=== PATIENT | female | born 1985 | race Caucasian/White ===

== ENCOUNTER 2016-09-11 08:58 | Day surgery (SDC) | payer BC ==
[~2016-09-11] VITALS: Ht 165.1 cm; Wt 110.0 kg
[~2016-09-11 08:58] MED LIST: ATROPINE SULFATE 0.1 MG/ML 5ML SYR IV PRN; DOXYCYCLINE HYCLATE 100 MG CAP PO SCH; EFF75 PO; EpHEDrine SULFATE INJ 50 MG/ML AMP IV PRN; FENTANYL CITRATE INJ 50 MCG/1 ML 2 ML VIAL IV PRN; HYDROmorphone INJ 1 MG/ML SYR IV PRN; IBUP-1050 PO; LACTATED RINGER'S 1000ML 1,000 ML IV SCH; ONDANSETRON INJ 2 MG/ML 2 ML VIAL IV PRN; PRENTAB26 PO
[2016-09-11] MEDS ORDERED: GLAT1INJ PO (09:17)
[2016-09-11 09:22] VITALS: BP 120/66; PULSE 86; TEMP 36.9; O2SAT 97; Ht 165.1 cm; Wt 110.0 kg
[2016-09-11] MEDS ORDERED: SCOPOLAMINE 1.5 MG TDSY TD ONE (09:30)
[2016-09-11] MEDS ORDERED: MULT-506 PO (09:40)
[2016-09-11] MEDS ORDERED: VENL1CAP92 PO (09:40)
[2016-09-11] MEDS ORDERED: ONDANSETRON INJ 2 MG/ML 2 ML VIAL ONE (09:42)
[2016-09-11] MEDS ORDERED: PROPOFOL IV EMULSION 10 MG/ML 20 ML VIAL IV ONE (09:42)
[2016-09-11] MEDS ORDERED: MIDAZOLAM HCL 1 MG/ML 2ML VIAL ONE (09:42)
[2016-09-11] MEDS ORDERED: LIDOCAINE HCL 2% 2 ML VIAL (20MG/ML) ONE (09:42)
[2016-09-11] MEDS ORDERED: DEXAMETHASONE SOD INJ 4 MG/ML VIAL ONE ×2 (09:42→10:37)
[2016-09-11] MEDS ORDERED: FENTANYL CITRATE INJ 50 MCG/1 ML 2 ML VIAL ONE (09:42)
[2016-09-11 09:50] LABS: BASO % 0.2 %; BASO ABS # 0.02 K/uL (0-0.2); EOS % 0.6 %; HEMATOCRIT 40.3 % (37-47); IG% 0.5 %; LYMPH ABS # 2.93 K/uL (1.2-3.4); MEAN CELL VOLUME 88.8 fL (80-100); MEAN CORPUSCULAR HEMOGLOBIN 30.6 pg (25-34); MEAN PLATELET VOLUME 9.9 fL (7.4-10.4); MONO % 5.6 %; NEUT % 58.1 %; PLATELET COUNT 224 K/uL (130-400); RED BLOOD COUNT 4.54 M/uL (4.2-5.4); WHITE BLOOD COUNT 8.38 K/uL (4.8-10.8)
[2016-09-11] MEDS ORDERED: SODIUM CHLORIDE 0.9% 1000ML 1,000 ML IV SCH (09:56)
--- NOTE | 2016-09-11 09:56 | History & Physical Bridge Note ---
H&P Re-Evaluation Bridge Note: I have examined the patient, reviewed the History & Physical and in the interval since the performance of the History & Physical I have noted the following changes of clinical significance: No changes noted
[2016-09-11 09:57] LABS: CALCIUM 8.6 mg/dl (8.5-10.1); CREATININE 0.61 mg/dl (0.60-1.20); POTASSIUM 3.7 mmol/L (3.5-5.1)
--- NOTE | 2016-09-11 09:58 | Discharge Instructions ---
Discharge Instructions Date of Service Sep 11, 2016. Visit Reason for Visit: Missed Discharge Discharge Diagnosis / Problem: Miscarriage, D&E Discharge Goals Goal(s): Specific goals Activity Recommendations Activity Limitations: per Instructions/Follow-up section Anesthesia . Post Anesthesia Instructions: If you have had General Anesthesia or IV Sedation: * Do not drive today. * Resume driving when surgeon permits. * Do not make important decisions or sign legal documents today. * Call surgeon for: 1. Temperature elevations greater than 101 degrees F. 2. Uncontrollable pain. 3. Excessive bleeding. 4. Persistent nausea and vomiting. 5. Medication intolerance (nausea, vomiting or rash). * For nausea and vomiting use only clear liquids such as: tea, soda, bouillon until nausea subsides, then gradually increase diet as tolerated. * If you have any concerns or questions, call your surgeon's office. If physician is unavailable and it is an emergency, call 911 or go to the nearest emergency room. . Instructions / Follow-Up Instructions / Follow-Up ACTIVITY RECOMMENDATIONS: * Avoid tampons, douching, hot tubs, pools, and intercourse until bleeding has stopped. * May shower as usual. * No strenuous activity for 24-48 hours. After 24-48 hours, you may do anything you feel like doing (driving and sports are okay). SPECIAL CARE INSTRUCTIONS: Special Diet: * Mild nausea may occur in the immediate post-operative period. * Take clear liquids such as tea, cola or bouillon until all nausea has subsided; you may then resume your normal diet. Special Care: * Light bleeding and vaginal spotting can last from a few days to 3-4 weeks. Call your doctor if bleeding becomes heavier than the heaviest part of your period. * Check your temperature twice a day for one week. If it goes above 100.4 degrees Fahrenheit (38.0 Celsius), notify your doctor. * Call your doctor's office for an appointment for 6 weeks after your surgery. FOLLOW-UP VISIT: Call your doctor's office for an appointment for 6 weeks after your surgery. Diet Recommendations Recommended Home Diet: resume previous diet Pending Studies Studies pending at discharge: no Medical Emergencies . Who to Call and When: Medical Emergencies: If at any time you feel your situation is an emergency, please call 911 immediately. . Non-Emergent Contact Non-Emergency issues call your: Primary Care Provider . . "Provider Documentation" section prepared by Kesha Bhatia. .
[2016-09-11 10:00] LABS: COMPLETE YES; MEAN CORPUSCULAR HGB CONC 34.5 g/dl (32-36)
[2016-09-11] MEDS ORDERED: PROMETHAZINE HCL INJ 25 MG in SODIUM CHLORIDE 0.9% 50ML 50 ML IV PRN (10:00)
[2016-09-11] MEDS ORDERED: IBUPROFEN 600 MG TAB PO PRN (10:00)
[2016-09-11] MEDS ORDERED: KETOROLAC TROMETHAMINE 30 MG/ML VIAL IV. PRN (10:00)
[2016-09-11] MEDS ORDERED: ONDANSETRON INJ 2 MG/ML 2 ML VIAL IV PRN (10:00)
[2016-09-11] MEDS ORDERED: METHYLERGONOVINE MALEATE 0.2 MG/ML AMP ONE (10:22)
--- NOTE | 2016-09-11 10:45 | [facility] Post Operative Brief Note ---
Immediate Operative Summary Operative Date Sep 11, 2016. Pre-Operative Diagnosis Missed Post-Operative Diagnosis Same Procedure(s) Performed Dilation and evacuation Surgeon Jannette Broke Worker Surgeon(s) None Estimated Blood Loss 100 Findings Uterus sounded to 12cm preop, 7cm post. Retrieval of tissue c/w POC Specimens POC Complication(s) None Disposition Recovery Room / PACU
[2016-09-11] MEDS ORDERED: SUCCINYLCHOLINE CHLORIDE 20 MG/ML 10 ML VIAL IV ONE (10:49)
--- NOTE | 2016-09-11 11:21 | Anesthesiology Progress Note ---
Anesthesia Post Op Note Date & Time Sep 11, 2016 at 11:20 Vital Signs Pain Intensity: 0 Vital Signs Past 12 Hours Date Time Temp Pulse Resp B/P Pulse Ox O2 Delivery O2 Flow Rate FiO2 09/11/16 11:10 82 18 134/77 100 Nasal Cannula 3 09/11/16 11:00 93 18 121/70 97 Mask 5 09/11/16 10:55 36.4 94 18 126/97 100 Mask 5 09/11/16 09:22 36.9 86 16 120/66 97 Room Air Notes Mental Status: alert / awake / arousable, participated in evaluation Pt Amnestic to Procedure: Yes Nausea / Vomiting: adequately controlled Pain: adequately controlled Airway Patency, RR, SpO2: stable & adequate BP & HR: stable & adequate Hydration State: stable & adequate Anesthetic Complications: no major complications apparent
[2016-09-11 11:35] VITALS: BP 103/48; PULSE 83; TEMP 36.9; O2SAT 100
[2016-09-11 12:05] VITALS: BP 91/70; PULSE 81; TEMP 36.7; O2SAT 100
[2016-09-11 12:25] VITALS: BP 110/73; PULSE 94; TEMP 36.9; O2SAT 100
--- NOTE | 2016-09-20 14:15 | OPERATIVE REPORT ---
DATE OF OPERATION: 09/11/2016 PREOPERATIVE DIAGNOSIS: Missed . POSTOPERATIVE DIAGNOSIS: Same. PROCEDURE: D\T\E. SURGEON: Dr. Bhatia. CHAIR MECHANIC: None. ESTIMATED BLOOD LOSS: 100 mL. FINDINGS: Uterus sounded to 12 cm preop and 7 cm postop. Tissue retrieved consistent with POCs. SPECIMENS: POCs. COMPLICATIONS: None. DISPOSITION: Stable to recovery room. DESCRIPTION: Melina was placed on the table in the [employer] [facility] stirrups in the dorsal lithotomy position. She was prepped and draped in standard sterile fashion and a hard time-out was taken prior to proceeding. Specula were introduced to the vagina and the cervix was grasped with a single-tooth tenaculum. The uterus sounded to 12 cm. The cervix was serially dilated to allow passage of an 8 mm rigid curet which was then addressed to the fundus and suction hose was then applied. Suction was activated and once it reached the appropriate strength the curette was rotated and slowly withdrawn. Through 3 passes material consistent with POCs was retrieved. Suction curet was then removed and a smooth curette was used to manually gently curette all schmidt of the uterus to ensure good uterine cry. One final pass with suction retrieved any last bits of loose clot and debris and then all instruments were removed from the patient's body. She was transferred in stable condition to the PACU. I attest to the content of the Intraoperative Record and any orders documented therein. Any exceptio ns are noted below.
[2017-04-01] MEDS ORDERED: ETONMIS VAGRING (13:12)
[2017-04-01] MEDS ORDERED: PRENTAB26 PO (13:12)
== END 2016-09-11 12:30 | disposition home or self-care (01) ==
LOC: C.ACU 08:58
PROVIDERS: ATTEND Obstetrics & Gynecology
DX: O02.1 Missed abortion (principal); Z80.0 Family history of malignant neoplasm of digestive organs; Z80.3 Family history of malignant neoplasm of breast

== ENCOUNTER → 2017-03-27 | Outpatient (CLI) | payer BC ==
[~2017-03-27] MED LIST changes: -ATROPINE SULFATE 0.1 MG/ML 5ML SYR IV PRN; -DOXYCYCLINE HYCLATE 100 MG CAP PO SCH; -EFF75 PO; +ETONMIS VAGRING; -EpHEDrine SULFATE INJ 50 MG/ML AMP IV PRN; -FENTANYL CITRATE INJ 50 MCG/1 ML 2 ML VIAL IV PRN; -HYDROmorphone INJ 1 MG/ML SYR IV PRN; -LACTATED RINGER'S 1000ML 1,000 ML IV SCH; +MULT-506 PO; -ONDANSETRON INJ 2 MG/ML 2 ML VIAL IV PRN; +VENL1CAP92 PO
[2017-03-27 17:31] LABS: HEMATOCRIT 40.5 % (37-47); MEAN CORPUSCULAR HEMOGLOBIN 30.2 pg (25-34); MEAN CORPUSCULAR HGB CONC 34.3 g/dl (32-36); PLATELET COUNT 260 K/uL (130-400); WHITE BLOOD COUNT 8.93 K/uL (4.8-10.8)
== END | disposition home or self-care (01) ==
LOC: C.LAB1850 17:10
PROVIDERS: ATTEND Obstetrics & Gynecology
DX: Z01.812 Encounter for preprocedural laboratory examination (principal)

== ENCOUNTER → 2017-04-24 | Day surgery (SDC) | payer BC ==
[2017-04-01 13:12] VITALS: Ht 167.6 cm; Wt 113.2 kg
[~2017-04-24] VITALS: Ht 167.6 cm; Wt 113.2 kg
[~2017-04-24] MED LIST changes: +ATROPINE SULFATE 0.1 MG/ML 5ML SYR IV PRN; +DEXAMETHASONE SOD INJ 4 MG/ML VIAL ONE; +EpHEDrine SULFATE INJ 50 MG/ML AMP IV PRN; +FENTANYL CITRATE INJ 50 MCG/1 ML 2 ML VIAL IV PRN; +FENTANYL CITRATE INJ 50 MCG/1 ML 2 ML VIAL ONE; +GLYCOPYRROLATE INJ 0.2 MG/ML VIAL ONE; -IBUP-1050 PO; +IBUPROFEN 200 MG TAB ONE; +IBUPROFEN 600 MG TAB PO PRN; +KETOROLAC TROMETHAMINE 30 MG/ML VIAL IV. PRN; +LACTATED RINGER'S 1000ML 1,000 ML IV SCH; +LIDOCAINE HCL 2% 2 ML VIAL (20MG/ML) ONE; +METOCLOPRAMIDE HCL INJ 5 MG/ML 2 ML VIAL IV PRN; +MIDAZOLAM HCL 1 MG/ML 2ML VIAL ONE; -MULT-506 PO; +NEOSTIGMINE METHYLSULFATE 5 MG/5 ML SYR ONE; +ONDANSETRON INJ 2 MG/ML 2 ML VIAL IV PRN; +ONDANSETRON INJ 2 MG/ML 2 ML VIAL ONE; +OXYCODONE/ACETAMINOPHEN 5-325 TAB PO PRN; +PROPOFOL IV EMULSION 10 MG/ML 20 ML VIAL IV ONE; +ROCURONIUM BROMIDE 10 MG/ML 5 ML VIAL IV ONE; +SCOPOLAMINE 1.5 MG TDSY TD ONE; +SODIUM CHLORIDE 0.9% 1000ML 1,000 ML IV SCH; -VENL1CAP92 PO
--- NOTE | 2017-04-24 10:39 | Discharge Instructions-SurgCtr ---
Discharge Instructions Date of Service Apr 24, 2017. Visit Reason for Visit: Encounter For Sterilization Discharge Discharge Diagnosis / Problem: Sterilization Discharge Goals Goal(s): Specific goals Activity Recommendations Activity Limitations: per Instructions/Follow-up section Anesthesia . Post Anesthesia Instructions: If you have had General Anesthesia or IV Sedation: * Do not drive today. * Resume driving when surgeon permits. * Do not make important decisions or sign legal documents today. * Call surgeon for: 1. Temperature elevations greater than 101 degrees F. 2. Uncontrollable pain. 3. Excessive bleeding. 4. Persistent nausea and vomiting. 5. Medication intolerance (nausea, vomiting or rash). * For nausea and vomiting use only clear liquids such as: tea, soda, bouillon until nausea subsides, then gradually increase diet as tolerated. * If you have any concerns or questions, call your surgeon's office. If physician is unavailable and it is an emergency, call 911 or go to the nearest emergency room. . Instructions / Follow-Up Instructions / Follow-Up ACTIVITY RECOMMENDATIONS: * Rest the first 2-3 days. You should be back to your normal activity levels by day 3. * No heavy lifting for 2 weeks. * No intercourse, tampons or douching for 1-2 weeks. * You may shower the next day. * Do not drive anytime that you are taking narcotic pain medicines. RETURN TO SCHOOL/WORK: * May return to school or work after 2-3 days. DIET: Nausea may occur in the immediate post-operative period. If so, take clear liquids such as tea, bouillon, apple juice until all nausea has subsided, then resume usual diet. MEDICATIONS: Resume previous medications unless instructed otherwise by your surgeon. Ibuprofen 200mg 2-3 tablets every 4-6 hours as needed -- OR -- Aleve 2 tablets every 8-12 hours as needed for post-operative discomfort Medications are over the counter. Tylenol may be used if above medications are contraindicated or not preferred. Medication should be taken with food or milk. Do not take on an empty stomach. SPECIAL CARE INSTRUCTIONS: * Check temperature twice daily for one week. report any elevation over 101 degrees. * You may experience some vagina spotting and/or bleeding. This is normal for 1 -2 weeks and should not be heavier than a normal period. If it is unusual in amount, call your physician. * Post-operative discomfort may consist of a sore throat, a "bloated" feeling and pain in the shoulders. these are normal symptoms, which usually only last for 2-3 days. * Remove band-aids tomorrow and shower. There is no need to replace band-aids unless there is drainage or discomfort. FOLLOW UP VISIT: Call your doctor's office for a post-operative 2 week visit if not already scheduled. Diet Recommendations Home Diet: resume previous diet Pending Studies Studies pending at discharge: no Medical Emergencies . Who to Call and When: Medical Emergencies: If at any time you feel your situation is an emergency, please call 911 immediately. . Non-Emergent Contact Non-Emergency issues call your: Primary Care Provider . . "Provider Documentation" section prepared by Kesha Bhatia. .
--- NOTE | 2017-04-24 12:18 | Anesthesia Progress Nt - [facility] ---
Anesthesia Post Op Note Date & Time Apr 24, 2017 at 12:18 Vital Signs Pain Intensity: 4 Vital Signs Past 12 Hours Date Time Temp Pulse Resp B/P (MAP) Pulse Ox O2 Delivery O2 Flow Rate FiO2 04/24/17 12:00 Room Air 04/24/17 11:41 36.4 85 16 111/78 99 Diffusion Mask 5 04/24/17 09:32 36.8 86 18 102/73 (83) 98 Room Air Notes Mental Status: alert / awake / arousable, participated in evaluation Pt Amnestic to Procedure: Yes Nausea / Vomiting: adequately controlled Pain: adequately controlled Airway Patency, RR, SpO2: stable & adequate BP & HR: stable & adequate Hydration State: stable & adequate Anesthetic Complications: no major complications apparent
--- NOTE | 2017-04-24 12:30 | [facility] Post Operative Brief Note ---
Immediate Operative Summary Operative Date Apr 24, 2017. Pre-Operative Diagnosis Desire for Sterilization via Excision of tubes Post-Operative Diagnosis Same Procedure(s) Performed Bilateral salpingectomy, laparoscopic Surgeon Dr. Madi Bhatia Certified Phlebotomy Technician Surgeon(s) None Estimated Blood Loss 5 Findings Normal tubes, ovaries, uterus Specimens A. Right Fallopian Tube B. Left Fallopian Tube Complication(s) None Disposition Recovery Room / PACU
[2017-04-24 12:42] VITALS: TEMP 36.6
--- NOTE | 2017-04-24 13:05 | OPERATIVE REPORT ---
DATE OF OPERATION: 04/24/2017 PREOPERATIVE DIAGNOSIS: Desires sterilization. POSTOPERATIVE DIAGNOSIS: Same. PROCEDURE: Bilateral salpingectomy. SURGEON: Dr. Kesha Bhatia. ASSIST: None. ESTIMATED BLOOD LOSS: 5 mL. FINDINGS: Normal tubes and ovaries bilaterally, normal uterine fundus. SPECIMENS: Right and left fallopian tubes. COMPLICATIONS: None. DISPOSITION: Stable to the recovery room. OPERATION AND FINDINGS: DESCRIPTION: Melina is a 32-year-old who desires sterilization. See history and physical for full discussion. She was brought to the operating room, placed on the operating table in supine position, prepped and draped in standard sterile fashion and a hard time-out was taken prior to proceeding. The laparoscope was used to make an optical entry in the patient's umbilicus. This was done without complication. The abdomen was then insufflated. The patient was placed in steep Trendelenburg and under direct visualization, right and left lower quadrant ports were placed. Note, all ports were 5 mm in size. Once the patient was in Trendelenburg a blunt probe was used to mobilize the bowel to allow visualization of the pelvic organs. The uterine fundus was seen to be normal with bilateral tubes and ovaries also appearing normal. Each tube was grasped at its fimbriated end, elevated and then dissected off the mesosalpinx and ultimately divided from the uterine cornu using Harmonic scalpel. Each tube was then withdrawn through one of the ports and sent separately for pathology. Final examination of the pelvic organs revealed good hemostasis at all working sites. Both tubes had been successfully removed and the procedure was brought to completion. The gas was allowed to escape from the abdomen and all ports were removed. Port sites were closed using Dermabond dressing. The patient was then transferred to recovery room in stable condition. I attest to the content of the Intraoperative Record and any orders documented therein. Any exception s are noted below.
[2017-04-24 13:19] VITALS: BP 95/65; PULSE 75; O2SAT 99
== END | disposition home or self-care (01) ==
LOC: X.SURG 08:59
PROVIDERS: ATTEND Obstetrics & Gynecology
DX: Z30.2 Encounter for sterilization (principal); E66.9 Obesity, unspecified; Z68.41 Body mass index [BMI] 40.0-44.9, adult; Z98.890 Other specified postprocedural states; Z88.0 Allergy status to penicillin; Z91.040 Latex allergy status; Z80.3 Family history of malignant neoplasm of breast